=== PATIENT | male | born 1980 | race Caucasian/White ===

== ENCOUNTER 2020-05-01 05:54 | Day surgery (SDC) | payer BC ==
[~2020-05-01] VITALS: Ht 175.3 cm; Wt 81.6 kg
[~2020-05-01 05:54] MED LIST: BUPROPION XL300 MG PO; MINOCYCLINE HC100 MG PO; SUMATRIPTAN SUC50 MG PO
--- NOTE | 2020-05-01 08:01 | NUR ---
05/01/20 0800 Tracey Taylor 0752- PT ARRIVES TO PACU DROWSY RECIEVING JAW LIFT AIRWAY SUPPORT. 0800- OXYGEN REMOVED.
--- NOTE | 2020-05-01 08:31 | NUR ---
PT ALERT, ORIENTED AND SEEMS INFORMED ABOUT PROCEDURE. PT HOPES TO RECEIVE SOME RELIEF FROM THE SWALLOWING ISSUES HE HAS BEEN ENCOUNTERING THE PAST FEW YEARS. ALL QUESTIONS ANSWERED, PT SOMEWHAT ANXIOUS. GAVE COMFORT AND OFFERED PRAYER ON HIS BEHALF. HIS WILL PICK HIM UP FOLLOWING DC
--- NOTE | 2020-05-01 13:07 | OR ---
[facility] [address], [place] [address] Signed DATE OF OPERATION: 05/01/2020 SURGEON: Vianey Jacob MD PREOPERATIVE DIAGNOSIS: 1. Distal esophageal dysphagia. 2. Distal esophageal B-ring. POSTOPERATIVE DIAGNOSES: 1. Distal esophageal dysphagia. 2. Distal esophageal B-ring. 3. Small hiatal hernia. PROCEDURES: Esophagogastroduodenoscopy the with dilation (54 and 60-Equatorial [place]inean). ESTIMATED BLOOD LOSS: Minimal. INDICATIONS: Aneudy is a 40-year-old gentleman, who has had trouble with distal esophageal dysphagia, particularly to solids. In fact, I had to remove a hot dog from that area for him. He has just a little bit angulation at the GE junction; however, no obvious visible ring. We sent him for a barium swallow. There were no motility issues or obvious strictures. However, he has a B-ring at the distal esophagus consistent with the area of his dysphagia. I had met with Aneudy in the office, explained him we could certainly dilate that area to see if we can improve that for him. We reviewed the upper endoscopy in relationship to dilation. Of course, there is risk including, but not limited to gas bloating, crampy abdominal pain, bleeding, perforation requiring surgery, and missed diagnosis. In addition, when we dilate the esophagus, we always have an anesthesia provider to help us with sedation with propofol as well as control the airway. He had expressed understanding and wished to proceed. PROCEDURE IN DETAIL: Aneudy was taken into our endoscopy suite and placed in a supine semi-recumbent position. He was given IV sedation with propofol per our nurse porcelain enameler. A bite block was utilized. We inserted the adult gastroscope and passed it through this area at the GE junction. Again, we saw just a little bit angulation, but no obvious ring. The scope had been passed out into the stomach and retroflexed, and again he has a small hiatal hernia. After this, we inserted the flexible wire all the way into the antrum of the Electronically Signed By: VIANEY JACOB MD 05/01/20 1307 PATIENT NAME: ANEUDY PENG OPERATIVE REPORT DATE OF : 82 REPORT #: [id number] PHYSICIAN: VIANEY JACOB MD PCP: DMITRY WRIGHT PA-C REPORT IS CONFIDENTIAL AND NOT TO BE RELEASED WITHOUT AUTHORIZATION [facility] [address], [place] [address] Signed stomach. The bite block had been removed and we started with a well lubricated 54-Equatorial [place]inean Jordanian dilator. It was easily passed over the wire down the esophagus. We really felt a little or no resistance in the upper esophagus nor at the GE junction. We passed the dilator all the way up to 50 cm. Aneudy's GE junction was just past 30 cm. Consequently, we withdrew the dilator as well as the wire. The adult gastroscope was reintroduced, and as expected we saw no break in the mucosa neither in the proximal nor distal esophagus. We passed the wire back down in the antrum once again, and we used a well lubricated 60-Equatorial [place]ine[place] Jordanian dilator and passed that over the wire. We felt some resistance in the upper esophagus, and then again a little more resistance at the GE junction and again we passed it up to 50 cm. The wire and dilator were removed and the adult gastroscope was reintroduced. We saw a little irritation in the upper esophagus, but we did see a break in the mucosa down at the GE junction. The scope was passed out into the stomach and the stomach appeared fine. Again, on retroflexion, we could see has a small hiatal hernia. The scope was withdrawn back up through the area of the GE junction, which again showed a break in mucosa with the expected blood around that area. The middle and upper esophagus were otherwise fine. After this, the gas was suctioned out, the gastroscope removed. Aneudy tolerated his dilation quite well. RECOMMENDATIONS: I will see Aneudy back in my office in 7 to 14 days to review his results. I suspect in the future if he needs to be re-dilated, he could use the 60-Equatorial [place] balloon dilator. Vianey Jacob MD [facility] /[id number] cc: Vianey Jacob MD Copies: VIANEY JACOB MD ~ Electronically Signed By: VIANEY JACOB MD 05/01/20 1307 PATIENT NAME: ANEUDY PENG OPERATIVE REPORT DATE OF : 82 REPORT #: [id number] PHYSICIAN: VIANEY JACOB MD PCP: DMITRY WRIGHT PA-C REPORT IS CONFIDENTIAL AND NOT TO BE RELEASED WITHOUT AUTHORIZATION
== END 2020-05-01 08:30 | disposition home or self-care (01) ==
LOC: DS 05:54 → OPS 05:54 → DS 06:45 → OPS 08:30 → DS 09:30
PROVIDERS: ATTEND Colon & Rectal Surgery
PROC: 0DJ08ZZ Inspection of Upper Intestinal Tract, Via Natural or Artificial Opening Endoscopic (ICD-10-PCS; 2020-05-01)
PROC: 0D757ZZ Dilation of Esophagus, Via Natural or Artificial Opening (ICD-10-PCS; principal; 2020-05-01 06:45)
DX: R13.14 Dysphagia, pharyngoesophageal phase (principal); K44.9 Diaphragmatic hernia without obstruction or gangrene; Z88.2 Allergy status to sulfonamides; Z79.899 Other long term (current) drug therapy
CPT/HCPCS: J2704; J7121